=== PATIENT | male | born 1955 | race Caucasian/White ===

== ENCOUNTER 2017-07-20 17:47 | Inpatient (IN) | payer MEDICAID ==
[~2017-07-20] VITALS: Ht 177.8 cm; Wt 72.6 kg
[~2017-07-20 17:47] MED LIST: DARVOCET; FLEXERIL10 MG PO; LANTUS100 UNITS/; NOVOLOG100 UNITS/ IV
[2017-07-20] MEDS ORDERED: MORPHINE SULFAT15 M1 PO (18:03)
[2017-07-20] MEDS ORDERED: METOPROLOL TART25 MG PO (18:14)
[2017-07-20] MEDS ORDERED: GABAPENTIN300 MG PO (18:14)
[2017-07-20] MEDS ORDERED: PROAIR RESPICL90 MCG IH (18:15)
--- NOTE | 2017-07-20 23:32 | NUR ---
PT ARRIVED TO ROOM 127 AT 2114. PT GRIMACING AND CRYING. REQUESTING SOMETHING TO EAT AND COMPLAINING BACK HURTS. DR SAAVEDRA IN UNIT AND AWARE. PT CALMED AFTER OFFERED JELLO AND MS CONTIN PO. DRANK 2 CUPS BROTH AND ATE 3 CUPS SUGARFREE JELLO. CONTINUES TO REQUEST FOOD. ASKED TO GO OUTSIDE FOR A WALK AT 2200. EXPLAINED TO PT THAT HE CAN'T LEAVE THE HOSPITAL WHILE HE IS A PT. PT REQUESTING TO SMOKE. PLACED NICOTINE PATCH ON PT. PT UP OUT OF BED ANXIOUS. DR SAAVEDRA AWARE. IV ATTEMPTED BY 4 DIFFERENT NURSES. UNABLE TO ESTABLISH 2ND IV. IV INSULIN STARTED AT 2.5 UNITS/HR AND VERIFIED WITH 2ND RN. IV FLUID INFUSING AT 250ML/HR.
--- NOTE | 2017-07-21 00:01 | NUR ---
ASKED PT IF HE HAD A PLAN OR FRIENDS TO STAY WITH WHILE IN TOWN. DENIES. PT REPORTS BEING HOMELESS. ASKED IF HE HAD ADDITIONAL INSULIN SUPPLIES. PT DENIES. DID NOT HAVE A PLAN FOR TREATING HIS DIABETES.
[2017-07-21] MEDS ORDERED: LANTUS100 UNITS/ SUB-Q ×2 (00:13→10:30)
--- NOTE | 2017-07-21 01:05 | NUR ---
PT ASLEEP. STIRRED SLIGHTLY WITH BLOOD SUGAR CHECK. RR EVEN AND UNLABORED.
--- NOTE | 2017-07-21 04:25 | NUR ---
UPDATED DR SAAVEDRA RE LAB DRAW RESULTS.
--- NOTE | 2017-07-21 04:46 | NUR ---
PT AWAKE, WATCHING TELEVISION. REQUESTING 'SOMETHING TO EAT'. EXPLAINED TO PT THAT WILL RE-DRAW LABS AT 0800, AND DEPENDING ON RESULTS WILL ADVANCE HIS DIET. PROVIDED PT SUGARFREE JELLO AND TEA.
--- NOTE | 2017-07-21 05:09 | NUR ---
PT C/O OF FEET PAIN. APPLIED LOTION AND MASSAGED AND WRAPPED IN WARM BLANKET.
--- NOTE | 2017-07-21 06:23 | NUR ---
UPDATED DR SAAVEDRA RE: PT 174 BS. DECREASED INSULIN GTT TO 1.5UNITS/HR. PT UP TO BR TO ATTEMPT BM. ONE MISSED VOID, NO BM. UP TO COUCH IN ROOM. PT INSTRUCTED TO CALL WHEN READY TO GET UP AND BACK TO BED.
--- NOTE | 2017-07-21 08:16 | NUR ---
SITTING IN CHAIR. MED STUDENT ASSESSING PATIENT. INSULIN GTT AT 1.5 UNITS/HR. IV PATENT. C/O PAIN IN LEGS AND BACK. REQUESTING TO EAT. DENIES NAUSEA.
--- NOTE | 2017-07-21 08:30 | NUR ---
UP TO SHOWER.
--- NOTE | 2017-07-21 09:13 | NUR ---
TOLERATED SHOWER WELL. ACCUCHECK-150. LABS DRAWN EARLIER. OK TO FEED PATIENT BREAKFAST. SITTING IN CHAIR ROUTINE MEDS GIVEN ILEANAILER.
--- NOTE | 2017-07-21 09:30 | NUR ---
LEVEMIR 20 UNITS SQ GIVEN WELL NOVOLOG 1 UNIT. WILL DC INSULIN GTT IN APPROX ONE HR PER MD ORDERS.
--- NOTE | 2017-07-21 10:05 | NUR ---
TOOK OFF LEADS. IVF OFF. PATIENT IS UP IN ROOM GETTING DRESSED. TALKED WITH PATIENT ABOUT REMAINING IN HOSPITAL. PATIENT STATES HE WILL STAY HE JUST WANTS TO GET DRESSED.IS STABLE ON FEET. TOOK 100% OF BREAKFAST.
[2017-07-21] MEDS ORDERED: NICORETTE4 M2 BUCCAL (10:19)
[2017-07-21] MEDS ORDERED: NOVOLOG100 UNIT/1 SUB-Q ×2 (10:24→10:25)
[2017-07-21] MEDS ORDERED: BLOOD GLUCOSE1 EAC8 SUB-Q (10:27)
[2017-07-21] MEDS ORDERED: INSULIN SYRING1 EA11 SUB-Q (10:29)
--- NOTE | 2017-07-21 10:29 | NUR ---
DRESSED READY FOR DISCHARGE. WILL NEED CARE RIDE, NURSING SUPERVISIOR AWARE.
--- NOTE | 2017-07-21 10:30 | NUR ---
DISCHARGE INSTRUCTONS GIVEN. IV SITE DC'D WITH CATH INTACT.
--- NOTE | 2017-07-21 10:35 | NUR ---
DISCHARGED, AMBULATORY.
--- NOTE | 2017-07-21 17:35 | EKG ---
[facility] [address] [place] [address] Signed Sinus tachycardia with occasional premature ventricular complexes Otherwise normal ECG No previous ECGs available Confirmed by CHAD SAAVEDRA MD ([id number]) on 07/21/2017 5:35:27 PM Electronically Signed By: CHAD SAAVEDRA MD 07/21/17 1735 PATIENT NAME: KYARA HARRY Electrocardiogram DATE OF : 53 PHYSICIAN: CHAD SAAVEDRA MD REPORT #: [id number] REPORT IS CONFIDENTIAL AND NOT TO BE RELEASED WITHOUT AUTHORIZATION
== END 2017-07-21 10:54 | disposition home or self-care (01) | DRG 638 ==
LOC: ED 17:47 → CCU 21:03
PROVIDERS: ADMIT Internal Medicine
DX: E13.10 Other specified diabetes mellitus with ketoacidosis without coma (principal); F11.20 Opioid dependence, uncomplicated; I25.10 Atherosclerotic heart disease of native coronary artery without angina pectoris; G89.29 Other chronic pain; F41.9 Anxiety disorder, unspecified; M54.5 Low back pain; F12.10 Cannabis abuse, uncomplicated; F17.210 Nicotine dependence, cigarettes, uncomplicated; Z91.14 Patient's other noncompliance with medication regimen; Z79.4 Long term (current) use of insulin; Z95.5 Presence of coronary angioplasty implant and graft
CPT/HCPCS: 36415; 36600; 71010; 80048; 80053; 81001; 82010; 82800; 82803; 83605; 83735; 84484; 85025; 93005; 93010; 96361; 96374; 96375; 99285; J2405; J3475; J3480; J7030

== ENCOUNTER 2018-03-22 13:11 | Inpatient (IN) | payer MEDICAID ==
[~2018-03-22] VITALS: Ht 177.8 cm; Wt 78.5 kg
[~2018-03-22 13:11] MED LIST changes: +BLOOD GLUCOSE1 EAC8 SUB-Q; +GABAPENTIN300 MG PO; +INSULIN SYRING1 EA11 SUB-Q; +LANTUS100 UNITS/ SUB-Q; +METOPROLOL TART25 MG PO; +MORPHINE SULFAT15 M1 PO; +NICORETTE4 M2 BUCCAL; +NOVOLOG100 UNIT/1 SUB-Q; +PROAIR RESPICL90 MCG IH
--- NOTE | 2018-03-22 22:52 | NUR ---
UPDATED DR. MANJEET NOYOLA PATIENT'S LABS AND BLOOD SUGAR. RECEIVED ORDER FOR X1 DOSE OF 2O MEQ POTASSIUM, DECREASE CURENT IV FLUID RATE TO 125 ML/HR.
--- NOTE | 2018-03-23 00:15 | NUR ---
PATIENT RESTING IN BED, BREATHING IS EVEN AND UNLABORED. REQUESTING SNACK. DENIES FURTHER NEEDS, WHEN NOT SPEAKING, PATIENT QUICKLY FALLS ASLEEP. CALL LIGHT WITHIN REACH.
--- NOTE | 2018-03-23 01:28 | NUR ---
PATIENT RESTING IN BED, REQUESTING BROTH. PATIENT QUICKLY FALLS ASLEEP IN BETWEEN SENTENCES. CALL LIGHT WITHIN REACH.
--- NOTE | 2018-03-23 02:27 | NUR ---
PATIENT RESTING COMFORTABLY IN BED, BREATHING IS EVEN AND UNLABORED. CALL LIGHT WITHIN REACH.
--- NOTE | 2018-03-23 03:31 | NUR ---
PATIENT RESTING IN BED, BREATHING IS EVEN AND UNLABORED. FLACC SCORE OF 0. CALL LIGHT WITHIN REACH.
--- NOTE | 2018-03-23 04:41 | NUR ---
FULL LINEN CHANGE DONE TO TO INCONTINENCE OF STOOL. PATIENT RESTING THROUGHOUT AND STATES "I AM COLD AND I WANT SOME HOT FOOD." PATIENT NOW RESTING IN BED, BREATHING IS EVEN AND UNLABORED, APPEARS TO BE ASLEEP. GAVE WARM BLANKETS AND OFFERED BROTH BUT PATIENT NOW ASLEEP. CALL LIGHT WITHIN REACH.
--- NOTE | 2018-03-23 05:43 | NUR ---
PATIENT REFUSING TO HAVE LABS DRAWN, EDUCATED PATIENT ON IMPORTANCE OF LAB RESULTS, CONTINUES TO REFUSE. LABS DRAWN FROM ESTABLISHED IV SITE. PATIENT QUICKLY GOES BACK TO SLEEP, FLACC SCORE OF 0. CALL LIGHT WITHIN REACH.
--- NOTE | 2018-03-23 06:23 | NUR ---
PATIENT RESTING IN BED, BREATHING IS EVEN AND UNLABORED. GAVE PATIENT WARM BLANKET. CALL LIGHT WITHIN REACH.
--- NOTE | 2018-03-23 07:30 | NUR ---
BEDSIDE REPORT RECIEVED. PATIENT IS RESTFUL. NO DISTESS NOTED. IVF PATENT.
--- NOTE | 2018-03-23 08:13 | NUR ---
ASSESSMENT DONE. WISHES TO BE LEFT ALONE. TOOK 100% OF BREAKFAST.
--- NOTE | 2018-03-23 09:00 | NUR ---
DR. BURROUGHS HERE. ORDERS RECIEVED TO DC INSULIN GTT. THIS DONE. IVF AND MONITOR DC'D PER DR. BURROUGHS ORDERS. PATIENT ASKING FOR MORE FOOD. THIS IS OK WITH DR. BURROUGHS. [employer] CONSULT ORDERED.
--- NOTE | 2018-03-23 10:00 | NUR ---
SLEEPING AT THIS TIME.
--- NOTE | 2018-03-23 11:30 | NUR ---
[facility] HERE HERE TO SEE PATIENT.
--- NOTE | 2018-03-23 11:57 | NUR ---
ENTERED PT'S RM, HE WAS UPRIGHT IN BED, FINISHING UP HIS "2ND" BREAKFAST [employer] HAD SHARED WITH ME. I ASKED PT HOW HE IS FEELING AND HE SAID "HUNGRY", AND ASKED ME TO GET HIM ANOTHER BREAKFAST. I MENTIONED THAT I WOULD NEED TO CHECK WITH HIS RN. [employer] STATED THAT HE IS ON A RESTRICTED DIET. I WILL CONTINUE TO FOLLOW NEEDED
--- NOTE | 2018-03-23 12:00 | NUR ---
ACCUCHECK-405 DR. BURROUGHS AWARE, ORDERS RECIEVED TO GIVE LEVEMIR 15 UNITS WELL NOVOLOG 11 UNITS. ASSESSMENT DONE. NO CHANGES.
--- NOTE | 2018-03-23 13:00 | NUR ---
DR. LUO HERE TO SEE PATIENT. DISCHARGE ORDERS RECIEVED.
[2018-03-23] MEDS ORDERED: NOVOLOG100 UNIT/1 SUB-Q (13:01)
--- NOTE | 2018-03-23 13:10 | NUR ---
CALLED ALPHONSE AT [facility] TO TALK WITH HER ABOUT THIS PT. SHE IS VERY WELL ACQUAINTED WITH THIS PT. STATES HE HAS A PCP IN [place] [phone]. NURSE IS CHAKA CARRENO [phone] DR BURROUGHS INFORMED OF PCP NAME.
--- NOTE | 2018-03-23 13:20 | NUR ---
IS UP AND DRESSED. SLX2 DC'D WITH CATH INTACT. PATIENT WALK OUT PRIOR TO DISCHARGE INSTRUCTIONS GIVEN.
== END 2018-03-23 13:30 | disposition home or self-care (01) | DRG 639 ==
LOC: ED 13:11 → CCU 18:53
PROVIDERS: ADMIT Internal Medicine
DX: E11.01 Type 2 diabetes mellitus with hyperosmolarity with coma (principal); I25.10 Atherosclerotic heart disease of native coronary artery without angina pectoris; F41.9 Anxiety disorder, unspecified; G25.81 Restless legs syndrome; F15.11 Other stimulant abuse, in remission; F11.11 Opioid abuse, in remission; Z88.8 Allergy status to other drugs, medicaments and biological substances; Z91.14 Patient's other noncompliance with medication regimen; Z79.4 Long term (current) use of insulin; Z79.891 Long term (current) use of opiate analgesic; Z95.5 Presence of coronary angioplasty implant and graft; Z79.899 Other long term (current) drug therapy
CPT/HCPCS: 80048; 80053; 80176; 81001; 82010; 82803; 84443; 85025; 96361; 96372; 96374; 96375; 99285; G0480; J2060; J7030; J7120

== ENCOUNTER 2019-01-23 09:36 | Emergency (ER) | payer MEDICAID ==
[~2019-01-23] VITALS: Ht 177.8 cm; Wt 78.5 kg
== END 2019-01-23 14:00 | disposition short-term general hospital (02) ==
LOC: ED 09:36
DX: E11.00 Type 2 diabetes mellitus with hyperosmolarity without nonketotic hyperglycemic-hyperosmolar coma (NKHHC) (principal); F32.9 Major depressive disorder, single episode, unspecified; F41.9 Anxiety disorder, unspecified; Z88.6 Allergy status to analgesic agent; Z79.4 Long term (current) use of insulin
CPT/HCPCS: 36600; 80053; 80176; 81001; 82803; 85025; 96361; 96374; 96376; 99284-25; G0480; J1815; J7030